=== PATIENT | male | born 1935 | race Caucasian/White ===

== ENCOUNTER 2020-06-10 08:35 | Day surgery (SDC) | payer MEDICARE ==
[2020-06-09 10:37] VITALS: BMI 29.1
[2020-06-10] MEDS ORDERED: ONDANSETRON 4 MG/2 ML VIAL ONE (08:59)
[2020-06-10] MEDS ORDERED: LACTATED RINGERS 1,000 ML IV ONE (09:10)
[2020-06-10 09:14] LABS: Glucose,Whole Blood 144 mg/dL (75-99)
[2020-06-10] MEDS ORDERED: ONDANSETRON 4 MG/2 ML VIAL IVP ONE (09:30)
[2020-06-10] MEDS ORDERED: DEXAMETHASONE SOD PHOS (MDV) 100 MG/10 ML VIAL IVP ONE (09:30)
[2020-06-10] MEDS ORDERED: MIDAZOLAM 2 MG/2 ML VIAL IVP ONE (09:31)
--- NOTE | 2020-06-10 10:08 | P.ANPRN ---
Procedure Note - Anesthesia - Nerve Block Performed Right Popliteal Time Out Performed: Yes (:) Date of Procedure: 06/10/20 Procedure Start Time: Procedure Stop Time: Location of Patient: PreOp Indication: Acute Post-Operative Pain, Requested by Surgeon Sedation Type: Sedate with meaningful contact maintained Preparation: Sterile Prep Position: Left Lateral Catheter: None Needle Types: Pajunk Needle Gauge: 21 Ultrasound used to visualize needle placement: Yes Ultrasound used to observe medication spread: Yes Injectate: 0.5% Ropivacaine (see comment for volume) (15cc + Decadron 4mg) Blood Aspirated: No Pain Paresthesia on Injection Noted: No Resistance on Injection: Normal Image Stored and Saved: Yes Events: Uneventful and Well Tolerated
--- NOTE | 2020-06-10 10:10 | P.ANPRN ---
Procedure Note - Anesthesia - Nerve Block Performed Right Adductor Canal Time Out Performed: Yes (:41) Date of Procedure: 06/10/20 Procedure Start Time: : Procedure Stop Time: : Location of Patient: PreOp Indication: Acute Post-Operative Pain, Requested by Surgeon (Dr Gillespie) Sedation Type: Sedate with meaningful contact maintained Preparation: Sterile Prep Position: Supine Catheter: None Needle Types: Pajunk Needle Gauge: 21 Ultrasound used to visualize needle placement: Yes Ultrasound used to observe medication spread: Yes Injectate: 0.5% Ropivacaine (see comment for volume) (15cc + Decdron 4mg) Blood Aspirated: No Pain Paresthesia on Injection Noted: No Resistance on Injection: Normal Image Stored and Saved: Yes Events: Uneventful and Well Tolerated
[2020-06-10] MEDS ORDERED: ROPIVACAINE 5 MG/ML 30 ML VIAL ONE (10:19)
[2020-06-10] MEDS ORDERED: DEXAMETHASONE SOD PHOSPHATE 4 MG/ML 1 ML VIAL ONE (10:19)
[2020-06-10] MEDS ORDERED: PROPOFOL 10 MG/ML 20 ML VIAL IV ONE (10:19)
[2020-06-10] MEDS ORDERED: LIDOCAINE 1% INJ 10MG/ML (20 ML MDV) ONE (10:19)
[2020-06-10] MEDS ORDERED: fentaNYL (PF) 50 MCG/ML 2 ML AMP ONE (10:19)
[2020-06-10] MEDS ORDERED: ceFAZolin 2,000 MG in SODIUM CHLORIDE 0.9% 1,000 ML IRRIGATION ONE (10:46)
[2020-06-10] MEDS ORDERED: BUPIVACAINE (PF) 0.25% 30 ML VIAL SQ ONE (10:50)
[2020-06-10 11:59] VITALS: TEMP 97.7
[2020-06-10 12:07] LABS: Glucose,Whole Blood 155 mg/dL (75-99)
--- NOTE | 2020-06-10 12:12 | P.OP ---
Date of Procedure: 06/10/20 Preoperative Diagnosis: 1. Displaced oblique fibular shaft fracture right ankle 2. Ruptured syndesmosis right ankle Postoperative Diagnosis: 1. Same 2. Same Procedure(s) Performed: 1. Open reduction internal fixation fibular shaft fracture right ankle 2. Open reduction internal fixation right syndesmosis Implants: Arthrex lateral malleolar plate, 3.5, 3.0 locking screws Tight rope anchor Anesthesia: JORDONA Surgeon: Michael Gillespie Estimated Blood Loss (ml): 10 Pathology: none sent Condition: stable Disposition: PACU Indications for Procedure: Proximal fibular fracture that was displaced with lateral displacement of the talus and ankle mortise and widening of the medial joint space Description of Procedure: Prior to the patient being brought to the operating room anesthesia administered a nerve block on the right lower extremity. The patient brought into the operating room placed on table supine position. Timeout was taken to confirm correct patient identifiers, correct procedure, and correct site of surgery. When the room was in agreement the patient was placed under general anesthetic. A tourniquet was then placed on the right thigh and then the right leg was prepped and draped usual manner. Attention directed over the lateral malleolus where a linear incision was made in the area of the fracture. The incision was deepened down through the subcutaneous layer careful to identify, retract, any neurovascular structures and cauterize any bleeding vessels Dissection was carried down to the periosteum overlying the lateral malleolus. The periosteum was incised over the fracture. All soft tissue and hematoma was removed from between the fracture fragments. It was a clean break without any comminution. It was easily rotated and realigned and brought back out to length and then clamped in place. Fluoroscopic imaging confirmed a near anatomic alignment of the fracture. Then a 3.5 cortical screw was inserted from anterior to posterior perpendicular to the fracture line for inter-fragmental compression. Then an Arthrex lateral malleolar plate was positioned and checked under fluoroscopy until the alignment was proper. Threaded olive wires and then used to temporarily keep the plate in place. 3.5 locking screws were placed in the proximal portion of the plate and proximal to the fracture. 3.0 locking screws were placed distally into lateral malleolus. All drill holes were made u nder direct fluoroscopic visualization so that didn't breach the lateral gutter. Once the 3.[address] fixation was removed. The ankle was then stress tested under fluoroscopy with there was still gapping at the syndesmosis but not a significant amount at the deltoid ligament. At that point the proper hole the plate for the placement of the tight rope was chosen. The drill hole was made from the lateral malleolus into the tibia under direct fluoroscopic visualization and slight anterior angulation. The tight rope anchor was inserted until the medial suture button and passed through the bone. It was then released allowing the suture buttonlike flat against medial surface of the tibia. Then large periarticular reduction forceps were placed across the ankle joint to reduce the syndesmosis and they were tightened while holding the ankle maximally dorsiflexed. The tip tester was then removed and then utilizing proper technique, the tight rope was tensioned until the suture button contacted lateral malleolar plate. Again the ankle was stress tested under fluoroscopy there was no separation of the syndesmosis no medial talar tilt or abnormal gapping of the medial gutter. The wound is irrigated thoroughly with antibiotic saline. Deep closure was done with 2-0 Vicryl. Subcutaneous closure done with 3-0 Monocryl. And skin closure done with lizz. An Arthrex jumpstart dressing was placed over the lateral incision. A bulky dry dressings applied to the right foot and ankle. The tourniquet was released and capillary refill return to all digits of the right foot. The patient was then placed in a well-padded, well molded, posterior mold sugar tong plaster splint. Ankle was held in neutral position as it dried. Anesthesia was then reversed and the patient was taken recovery with vital signs stable.
[2020-06-10 12:32] VITALS: RESP 16
--- NOTE | 2020-06-10 12:35 | FL ---
EXAMINATION TYPE: FL guidance operating room DATE OF EXAM: 06/10/2020 HISTORY: Fluoroscopy time 22 seconds of fluoroscopy provided. IMPRESSION: 1. Fluoroscopy time.
[2020-06-10 13:29] VITALS: PULSE 79
[2020-06-10 13:37] VITALS: BP 164/73
== END 2020-06-10 14:30 | disposition home health service (06) ==
LOC: OR 08:35
PROVIDERS: ATTEND Podiatrist
DX: S82.61XA Displaced fracture of lateral malleolus of right fibula, initial encounter for closed fracture (principal); S93.431A Sprain of tibiofibular ligament of right ankle, initial encounter; W19.XXXA Unspecified fall, initial encounter; I11.9 Hypertensive heart disease without heart failure; E78.5 Hyperlipidemia, unspecified; E11.9 Type 2 diabetes mellitus without complications; H91.90 Unspecified hearing loss, unspecified ear; F32.9 Major depressive disorder, single episode, unspecified; J98.4 Other disorders of lung; E83.119 Hemochromatosis, unspecified; R42 Dizziness and giddiness; R45.0 Nervousness; Z85.828 Personal history of other malignant neoplasm of skin; Z79.82 Long term (current) use of aspirin; Z79.899 Other long term (current) drug therapy; Z79.02 Long term (current) use of antithrombotics/antiplatelets; Z79.52 Long term (current) use of systemic steroids; Z88.5 Allergy status to narcotic agent; Z88.8 Allergy status to other drugs, medicaments and biological substances; Z98.890 Other specified postprocedural states; Z82.49 Family history of ischemic heart disease and other diseases of the circulatory system
CPT/HCPCS: 64447; 64445; 76942; 27792; 27829; C1713 ×3; J2250; J1100 ×2; J0690 ×2; J2405; J2001; J3010; J2795; J2704

== ENCOUNTER 2021-10-01 16:39 | Emergency (ER) | payer MEDICARE ==
--- NOTE | 2021-10-01 18:10 | CT ---
EXAMINATION TYPE: CT brain key angel con DATE OF EXAM: 10/01/2021 COMPARISON: None HISTORY: Trauma. Suspected rami fx. CT DLP: 1424.4 mGycm Automated exposure control for dose reduction was used. There is cerebral cortical atrophy. There is no mass effect or midline shift. There is hypodensity in the periventricular white matter. No evidence of intracranial hemorrhage. The calvarium is intact. T here is normal aeration of the mastoid sinuses. There is some mild straightening of the vertebra. There is minimal subluxation at C4-5 and C3-4 of 2 mm. There is hypertrophic mild multilevel facet arthropathy. No cervical spine compression fracture. There is calcification in the transverse ligament. IMPRESSION: Cerebral atrophy and chronic small vessel ischemia. No acute intracranial abnormality. Cervical multilevel spondylotic changes. No acute bony abnormality.
--- NOTE | 2021-10-01 18:24 | CT ---
EXAMINATION TYPE: CT pelvis wo con DATE OF EXAM: 10/01/2021 COMPARISON: None HISTORY: Trauma CT DLP: 366.9 mGycm Automated exposure control for dose reduction was used. Images obtained from the iliac crests to the subtrochanteric femurs with no contrast. There are some sigmoid diverticula. No diverticulitis. Bladder distends smoothly. There is 3 cm diver ticulum on the left lateral urinary bladder. No free fluid in the pelvis. No evidence of a pelvic mas s. The sacroiliac joints are intact. The pelvic ring is intact. The sacrum shows some deformity with step deformity at the S 3 level consistent with a fracture. There is some sclerosis and probably not an acute fracture on the anterior aspect. The posterior aspect however shows fracture line. This coul d be an acute fracture. The coccyx is intact. Lower lumbar spine is intact. IMPRESSION: There is likely acute fracture of the sacrum at the S3 level with also probably a pre-existing old fr acture.
--- NOTE | 2021-10-01 18:36 | ED ---
General Adult HPI - General Chief complaint: Recheck/Abnormal Lab/Rx Stated complaint: RIGHT HIP PAIN Time Seen by Provider: 10/01/21 16:56 Source: patient, EMS, RN notes reviewed, old records reviewed Mode of arrival: EMS Limitations: no limitations - History of Present Illness Initial comments: 86-year-old male presents status post fall at the intermediate which occurred yesterday. Apparently the patient had x-rays performed showing pubic rami fracture and the patient was sent to the emergency department for evaluation and CT imaging. The patient's does complain of pain in his right hip and in his backside. He is uncertain about head trauma. No chest or abdominal pain. - Related Data Home Medications Medication Instructions Recorded Confirmed Insulin NPH Hum/Reg Insulin Hm 40 unit SQ HS 11/05/14 06/10/20 [NovoLIN 70-30 100 UNIT/ML VIAL] Insulin NPH Hum/Reg Insulin Hm 45 unit SQ QAM 11/05/14 06/10/20 [NovoLIN 70-30 100 UNIT/ML VIAL] Lisinopril-Hctz 20-12.5 mg 1 each PO HS 11/05/14 06/10/20 [Zestoretic 20-12.5] Crescent-3 Acid Ethyl Esters [Lovaza] 2 tab PO BID 11/05/14 06/10/20 Omeprazole [PriLOSEC] 20 mg PO QAM 11/05/14 06/10/20 amLODIPine BESYLATE [Norvasc] 5 mg PO HS 11/05/14 06/10/20 Albuterol Sulfate [Ventolin HFA] 2 puff INHALATION DAILY 06/09/20 06/10/20 Aspirin [Adult Low Dose Aspirin EC] 81 mg PO DAILY 06/09/20 06/10/20 Atorvastatin [Lipitor] 10 mg PO HS 06/09/20 06/10/20 Doxazosin [Cardura] 2 mg PO HS 06/09/20 06/10/20 Fluticasone Propionate [Flovent 2 puff INHALATION BID 06/09/20 06/10/20 Hfa 220 mcg] Furosemide [Lasix] 20 mg PO QAM 06/09/20 06/10/20 Glassia 1 dose IV FR 06/09/20 06/10/20 Ibuprofen [Motrin Ib] 200 mg PO TID 06/09/20 06/10/20 Isosorbide Mononitrate ER [Imdur] 30 mg PO QAM 06/09/20 06/10/20 Levothyroxine Sodium [Synthroid] 25 mcg PO QAM 06/09/20 06/10/20 Metoprolol Tartrate [Lopressor] 25 mg PO BID 06/09/20 06/10/20 Ubidecarenone [Co Q-10] 100 mg PO QAM 06/09/20 06/10/20 buPROPion [Wellbutrin] 100 mg PO QAM 06/09/20 06/10/20 Previous Rx's Medication Instructions Recorded Nitroglycerin Sl Tabs [Nitrostat] 0.4 mg SUBLINGUAL Q5M PRN #25 tab 11/12/14 traMADol HCl [Ultram] 50 mg PO Q4HR PRN #40 tab 06/10/20 Allergies Allergy/AdvReac Type Severity Reaction Status Date / Time codeine Allergy "MOUTH Verified 10/01/21 16:45 BLISTERS AND SKIN PEELS" phenobarbital Allergy Unknown Verified 10/01/21 16:45 Review of Systems ROS Statement: Those systems with pertinent positive or pertinent negative responses have been documented in the HPI. ROS Other: All systems not noted in ROS Statement are negative. Past Medical History Past Medical History: Coronary Artery Disease (CAD), Cancer, Diabetes Mellitus, GERD/Reflux, Hyperlipidemia, Hypertension, Myocardial Infarction (PR), Osteoarthritis (OA), Prostate Disorder, Respiratory Disorder, Skin Disorder, Thyroid Disorder Additional Past Medical History / Comment(s): BPH, hx Vitamin D Deficiency, hx Melanoma behind right ear, Alpha-1 Antitrypsin Deficiency (Inheritated lung Condition), possible LYNETTE, not diagnosed. "Recently both legs are swelling up by the end of the day, saw Dr Whitehead about it." Last Myocardial Infarction Date:: 2003 History of Any Multi-Drug Resistant Organisms: None Reported Past Surgical History: Adenoidectomy, Cholecystectomy, Heart Catheterization, Heart Catheterization With Stent, Hernia Repair, Orthopedic Surgery, Tonsillec kevin Additional Past Surgical History / Comment(s): HEART STENTS X 2 2003 W/ STENT REPLACED 2004, MELANOMA REMOVED BEHIND RT EAR, 2 more stents 11/27. Bilateral cataract surgery, right hernia repair, right arthroscopic knee surgery, laser surgery for secondary cataract, colonoscopy. Past Anesthesia/Blood Transfusion Reactions: No Reported Reaction Date of Last Stent Placement:: 2014 Past Psychological History: Depression Smoking Status: Former smoker Past Alcohol Use History: None Reported Past Drug Use History: None Reported - Past Family History Mother Family Medical History: Cancer, Congestive Heart Failure (CHF) Additional Family Medical History / Comment(s): BREAST CANCER. Father Family Medical History: Cancer Additional Family Medical History / Comment(s): LUNG CANCER. Sister(s) Family Medical History: Cancer, Coronary Artery Disease (CAD), Diabetes Mellitus, Hypertension General Exam Limitations: no limitations General appearance: alert, in no apparent distress Head exam: Present: atraumatic, normocephalic Eye exam: Present: normal appearance, PERRL Neck exam: Present: normal inspection. Absent: tenderness, meningismus Respiratory exam: Present: normal lung sounds bilaterally. Absent: respiratory distress, wheezes Cardiovascular Exam: Present: regular rate, normal rhythm GI/Abdominal exam: Present: soft. Absent: distended, tenderness Extremities exam: Present: pedal edema. Absent: full ROM Neurological exam: Present: alert, motor sensory deficit (Bilateral lower extremity weakness) Psychiatric exam: Present: normal affect, normal mood Skin exam: Present: warm, dry Course Vital Signs 10/01/21 16:42 Temperature 98.4 F Pulse Rate 83 Respiratory 20 Rate Blood Pressure 189/88 O2 Sat by Pulse 99 Oximetry Medical Decision Making - Medical Decision Making 86-year-old male from the intermediate status post fall which occurred yesterday. Patient was diagnosed with rami fracture on plain film. This was not available for review. I did CT his brain and cervical spine is negative for traumatic injury. CT of the pelvis shows a likely old pubic rami fracture and in acute S3 sacral fracture. I discussed these findings with Dr. mathew patel for orthopedics. No surgical management required at this time. The patient's is currently wheelchair-bound and a 2 person assist. Continue these measures with additional padding recommended. Patient stable for return in [facility]. Disposition Clinical Impression: Sacral fracture Disposition: HOME SELF-CARE Condition: Fair Instructions (If sedation given, give patient instructions): Sacral Fracture (ED) Additional Instructions: Please add additional cushioning to the patient's wheelchair. Is patient prescribed a controlled substance at d/c from ED?: No Referrals: Brodie Whitehead MD [Primary Care Provider] - 1-2 days Time of Disposition: 18:36
[2021-10-01 19:27] VITALS: BP 154/96; PULSE 80; RESP 18; TEMP 97.6
== END 2021-10-01 19:52 | disposition home or self-care (01) ==
LOC: EC 16:39
DX: S32.16XA Type 3 fracture of sacrum, initial encounter for closed fracture (principal); E11.9 Type 2 diabetes mellitus without complications; I10 Essential (primary) hypertension; E78.5 Hyperlipidemia, unspecified; Z82.49 Family history of ischemic heart disease and other diseases of the circulatory system; E07.9 Disorder of thyroid, unspecified; Z79.899 Other long term (current) drug therapy; K21.9 Gastro-esophageal reflux disease without esophagitis; Z79.83 Long term (current) use of bisphosphonates; Z87.891 Personal history of nicotine dependence; Z88.6 Allergy status to analgesic agent; Z88.8 Allergy status to other drugs, medicaments and biological substances; W19.XXXA Unspecified fall, initial encounter
CPT/HCPCS: 70450; 72125; 72192

== ENCOUNTER → 2021-11-04 | Outpatient (CLI) | payer MEDICARE, OTHER ==
--- NOTE | 2021-11-04 13:01 | CT ---
EXAMINATION TYPE: CT hip RT wo con CT DLP: 282.6 mGycm, Automated exposure control for dose reduction was used. DATE OF EXAM: 11/04/2021 12:30 PM COMPARISON: CT pelvis 10/01/2021 CLINICAL INDICATION:Male, 86 years old with history of M25.859 OTHER SPECIFIED JOINT DISORDERS; PHH, right hip pain TECHNIQUE: Axial images were obtained of the right hip . Additional coronal and sagittal reformatted images and soft tissue and bone window were obtained for review. 3-D reconstruction was created on a separate workstation. Contrast used: None Oral contrast used: None FINDINGS: There is diffuse osseous demineralization present which limits evaluation for fine bony detail. There is a fracture of the right inferior pubic ramus with callus formation which has increased from prior . Additional fracture through the acetabulum is present with increased displacement of 5 mm on today' s exam previously 2 mm. There is bony callus formation. There is intra-articular extension no new add itional fractures definitively visualized. Degeneration changes of the right hip with osteophyte form ation and joint space narrowing. The femur appears intact. No other fractures identified. IMPRESSION: 1. Diffuse osseous demineralization which limits evaluation for fine bony detail. The femur appears intact. There is interval mild displacement of the right superior pubic ramus/acetabulum fracture com pared to prior with callus formation. 2. Interval healing changes to the right inferior pubic ramus fracture with callus formation.
== END | disposition home or self-care (01) ==
LOC: RADCTMAIN 11:49
PROVIDERS: ATTEND Internal Medicine Geriatric Medicine
DX: S32.431A Displaced fracture of anterior column [iliopubic] of right acetabulum, initial encounter for closed fracture (principal)